=== PATIENT | male | born 1985 | race African-American/Black ===

== ENCOUNTER 2020-06-16 20:55 | Emergency (ER) | payer SELFPAY ==
[~2020-06-16] VITALS: Ht 188 cm; Wt 109.0 kg
[2020-06-16 21:52] VITALS: BP 133/84
== END 2020-06-16 23:07 | disposition home or self-care (01) ==
LOC: ER 20:55
DX: L05.01 Pilonidal cyst with abscess (principal)
CPT/HCPCS: 99281